=== PATIENT | female | born 1995 | race Caucasian/White ===

== ENCOUNTER → 2017-11-11 11:34 | Outpatient (CLI) | payer OTHER, MEDICAID, SELFPAY ==
[2017-11-11 12:12] LABS: Add Manual Diff / Slide Review NO; Basophils Percent Auto 0.2 % (0-2); Eosinophils Percent Auto 1.4 % (2-4); Hematocrit 40.4 % (36-46); Hemoglobin 13.7 g/dL (12.0-16.0); Lymphocytes Percent Auto 20.8 % (25-40); Mean Corpuscular HGB Conc 33.8 % (30-36); Mean Corpuscular Hemoglobin 29.3 PG (26-34); Mean Corpuscular Volume 86.6 fL (80-100); Neutrophils Absolute Auto 7200 /uL (3000-5900); Neutrophils Percent Auto 72.6 % (50-75); Platelet Count 187 X10^3/uL (150-400); Red Blood Cell Count 4.67 X10^6/uL (4.0-5.2); Red Cell Distribution Width 13.4 % (11.6-14.8); White Blood Cell Count 9.9 X10^3/uL (4.5-11.0)
[2017-11-11 12:28] LABS: Hemoglobin A1C% w Est Avg Glu 5.1 % (4.0-6.0)
[2017-11-11 12:52] LABS: Glucose 78 mg/dL (70-100)
[2017-11-11 13:54] LABS: Appearance Urine UA CLOUDY; Bilirubin Urine UA NEGATIVE (NEGATIVE); Color Urine UA YELLOW; Glucose Urine UA NEGATIVE (Normal); Ketones Urine UA NEGATIVE (NEGATIVE); Leukocyte Esterase Urine UA NEGATIVE (NEGATIVE); Nitrite Urine UA POSITIVE (Negative); Occult Blood Urine UA TRACE-LYSED (Negative); Protein Urine UA NEGATIVE (Negative); Specific Gravity Urine UA 1.025 (1.000-1.035); Urobilinogen Urine UA 0.2 E.U./dL (0.2); pH Urine UA 5.5 (4.5-8.0)
[2017-11-11 14:10] LABS: RBC Urine 0-1/HPF (0-5/HPF)
[2017-11-11 14:11] LABS: Bacteria Urine Many (>30); Squamous Epithelial Cell Urine 0-1 /HPF; WBC Urine 5-10/HPF (0-5/HPF)
[2017-11-11 15:34] LABS: Hepatitis B Surface Antigen NEGATIVE s/c (NEGATIVE); Rubella Antibody IgG 10.2 IU/mL (>15)
[2017-11-11 15:52] LABS: HIV 1 and 2 Antibody NEGATIVE (NEGATIVE); Hep C Virus Ab w/Reflex Quant NEGATIVE s/c (NEGATIVE)
[2017-11-12 13:51] LABS: HSV 2 IGG AB < 0.90 index (< 0.90)
[2017-11-18 09:26] LABS: Rapid Plasma Reagin NON-REACTIVE
== END ==
DX: Z36.9 Encounter for antenatal screening, unspecified (principal); Z3A.12 12 weeks gestation of pregnancy
CPT/HCPCS: 36415; 80055; 81003; 81015; 82947; 83036; 86695; 86696; 86703; 86787; 86803; 86850; 86900; 86901; 87077; 87086; 87186

== ENCOUNTER → 2018-02-26 09:10 | Outpatient (CLI) | payer OTHER, MEDICAID, SELFPAY ==
[2018-02-26 11:02] LABS: Hematocrit 39.3 % (36-46); Hemoglobin 13.1 g/dL (12.0-16.0)
[2018-02-26 11:17] LABS: GTT (PREG) 1 Hour PP 50gm Dose 82 mg/dL (76-139)
== END ==
PROVIDERS: PCP Family Medicine
DX: Z34.02 Encounter for supervision of normal first pregnancy, second trimester (principal)
CPT/HCPCS: 36415; 82950; 85014; 85018

== ENCOUNTER → 2018-04-28 13:39 | Outpatient (CLI) | payer OTHER, MEDICAID, SELFPAY | PROVIDERS: PCP Family Medicine | DX: Z13.9 Encounter for screening, unspecified (principal) ==

== ENCOUNTER → 2018-05-07 11:42 | Outpatient (CLI) | payer OTHER, MEDICAID, SELFPAY ==
[2018-05-08 15:42] LABS: Strep Grp B PCR POS for Grp B Strep
== END ==
PROVIDERS: PCP Family Medicine
DX: Z34.03 Encounter for supervision of normal first pregnancy, third trimester (principal)
CPT/HCPCS: 87653

== ENCOUNTER 2018-05-20 12:20 | Outpatient (CLI) | payer OTHER, MEDICAID, SELFPAY ==
--- NOTE | 2018-05-20 13:50 | PM.OBTRLD ---
Visit Information Visit Information Date of evaluation: 05/20/18 Primary OB Provider: Cralos Torres On-call OB Provider: Lolly Nicholson Reason for Evaluation: Yes rule out labor Vital Signs Vital Signs: Blood pressure 122/73, pulse of 94, temperature is 36.3? PFSH Medical History Rash (Chronic) Allergic rhinitis (Chronic) Anxiety (Chronic) Asthma (Chronic) Chronic back pain (Chronic) Depression (Chronic) Eczema (Chronic) Frequent UTI (Chronic) Heavy menstrual period (Chronic) History of recurrent ear infection (Chronic) Irregular menstrual cycle (Chronic) Migraines (Chronic) Painful menstrual periods (Chronic) Acne (Resolved) Chickenpox (Resolved) Foot pain (Resolved) Plantar fasciitis (Resolved) Surgical History S/P appendectomy (Chronic ~1997) S/P tonsillectomy (Chronic ~2012) History of surgery on arm (Resolved ~2009) Social History marital status: unmarried,single Smoking Status: Former smoker alcohol intake: never substance use type: marijuana Evaluation Evaluation Baseline heart rate: 120 Variability: Moderate (11-25) monitor accelerations: Present monitor decelerations: Absent Contraction Frequency (minutes): 5 Uterine Contraction Intensity: Mild Category of Tracing: I Cervical dilation (cm): 1 Cervical effacement (%): 80 station: -1 Diagnosis, Plan/Disposition Final Diagnosis (1) 39 weeks gestation of : Current Visit: Yes Status: Acute (2) Premature uterine contractions in third trimester, antepartum: Current Visit: Yes Status: Acute Plan/Disposition Plan: Patient came in for rule out labor. She does not appear to be in labor she was sent home to follow up on a normal OB appointment. Reactive nonstress test.
== END 2018-05-20 14:08 | disposition home or self-care (01) ==
LOC: LABOR 12:56 → OB 05-27 08:35
DX: O47.1 False labor at or after 37 completed weeks of gestation (principal); Z3A.39 39 weeks gestation of pregnancy
CPT/HCPCS: 59025; G0378; G0379

== ENCOUNTER 2018-05-21 02:40 | Inpatient (IN) | payer OTHER, MEDICAID, SELFPAY ==
[2018-05-21] MEDS: LACTATED RINGERS 1,000 ML 100 ML IV ×2 (03:05→07:40)
[2018-05-21] MEDS: PENICILLIN G POTASSIUM 5,000,000 UNIT in DEXTROSE 5% IN WATER 250 ML IV (03:05)
[2018-05-21 03:38] VITALS: BP 135/79
[2018-05-21 03:38] LABS: Add Manual Diff / Slide Review NO; Basophils Percent Auto 0.5 % (0-2); Eosinophils Percent Auto 0.2 % (2-4); Hematocrit 37.9 % (36-46); Hemoglobin 12.5 g/dL (12.0-16.0); Lymphocytes Percent Auto 12.2 % (25-40); Mean Corpuscular Hemoglobin 28.2 PG (26-34); Mean Corpuscular Volume 85.5 fL (80-100); Monocytes Percent Auto 4.7 % (3-14); Neutrophils Absolute Auto 12900 /uL (1500-7000); Neutrophils Percent Auto 82.4 % (50-75); Platelet Count 155 X10^3/uL (150-400); Red Blood Cell Count 4.43 X10^6/uL (4.0-5.2); Red Cell Distribution Width 13.8 % (11.6-14.8); White Blood Cell Count 15.6 X10^3/uL (4.5-11.0)
[2018-05-21] MEDS: PENICILLIN G POTASSIUM 3,000,000 UNIT/50 ML FROZ.PIGGY 100 UNIT IV (07:10)
--- NOTE | 2018-05-21 07:34 | PM.OBHP.1 ---
OB HPI Date/Time Date of admission: 05/21/18 Date Patient Seen: 05/21/18 Time Patient Seen: 07:35 History of Present Condition Chief complaint: EVALUATION OF LABOR : 1 Para: 0 Estimated Date of Delivery: 05/22/18 Estimated Gestational Age (weeks): 39 Narrative: Jefferson Ayala is a 22 year old female one para 0 seen and followed during this from the 12 week. The patient's blood pressures remained normotensive throughout the . Her weight went from 187-209 lb. Her urine she remained negative for glucose and protein. The patient is blood type A positive antibody screen negative. The remainder of her laboratory studies were within normal limits. Her Pap smear was ASCUS positive HPV and she was colposcope during the and found to have no significant lesions. Her 1 hr glucose was 82. The patient is group B strep positive The patient presents in labor at 3:00 a.m. on the 21 of May and was 5 cm dilated. Re-examination at 7:00 a.m. showed her to be 7 cm dilated and membranes were ruptured at that juncture and fluid was clear. The patient was receiving her 2nd dose of antibiotics at that time. Indications Other reason(s) for admission: Active labor History of Present care: good care Preadmission Labs Blood type: A (+) positive -: Antibody screen: negative, GBS status: positive, HBsAG: negative, HIV: negative, HSV 1: negative, HSV 2: negative and RPR/VDLR: negative -: Chlamydia screen: not detected and Gonorrhea screen: not detected -: Rubella: immune HCT: 40 HCAB: negative PAP: Abnormal Sequential screen: Normal Evaluation Evaluation Laboratory results: Laboratory Tests 05/21/18 05/21/18 03:05 03:05 WBC 15.6 H RBC 4.43 Hgb 12.5 Hct 37.9 MCV 85.5 MCH 28.2 MCHC 33.0 RDW 13.8 Plt Count 155 Neut % (Auto) 82.4 H Lymph % (Auto) 12.2 L Johnson % (Auto) 4.7 Eos % (Auto) 0.2 L Baso % (Auto) 0.5 Neut # (Auto) 27174 H Blood Type A Positive Antibody Screen Negative PFSH Medical History Rash (Chronic) Allergic rhinitis (Chronic) Anxiety (Chronic) Asthma (Chronic) Chronic back pain (Chronic) Depression (Chronic) Eczema (Chronic) Frequent UTI (Chronic) Heavy menstrual period (Chronic) History of recurrent ear infection (Chronic) Irregular menstrual cycle (Chronic) Migraines (Chronic) Painful menstrual periods (Chronic) Acne (Resolved) Chickenpox (Resolved) Foot pain (Resolved) Plantar fasciitis (Resolved) Surgical History S/P appendectomy (Chronic ~1997) S/P tonsillectomy (Chronic ~2012) History of surgery on arm (Resolved ~2009) Social History marital status: unmarried,single Smoking Status: Former smoker alcohol intake: never substance use type: marijuana Meds Home Medications Medication Instructions Recorded Confirmed Type IBUPROFEN (Motrin / Advil) 0 PO PRN #0 11/07/07 11/13/17 History acetaminophen 325 mg PO PRN #0 11/07/07 11/13/17 History 1 tab PO DAILY 11/11/17 11/13/17 History vitamin,calcium,japkardt-gzba-oifcg acid tablet Allergies Allergy/AdvReac Type Severity Reaction Status Date / Time No Known Drug Allergies Allergy Verified 11/13/17 09:28 Exam Vital Signs (past 8 hours): - 05/21/18 03:38 Blood Pressure 135/79 Manual OB Exam: dilated 7, effaced fully and station 0 Uterus Location (Fundal Height): 38 Presentation: vertex Amniotic Fluid: clear Objective Labs Result Diagrams: 05/21/18 03:05 Labs: Laboratory Results - last 24 hr 05/21/18 05/21/18 03:05 03:05 WBC 15.6 H RBC 4.43 Hgb 12.5 Hct 37.9 MCV 85.5 MCH 28.2 MCHC 33.0 RDW 13.8 Plt Count 155 Neut % (Auto) 82.4 H Lymph % (Auto) 12.2 L Johnson % (Auto) 4.7 Eos % (Auto) 0.2 L Baso % (Auto) 0.5 Neut # (Auto) 79295 H Blood Type A Positive Antibody Screen Negative Assessment and Plan Plan: Plan: Term GBS positive receiving antibiotics Epidural anesthesia Artificial rupture of membranes with clear fluid
--- NOTE | 2018-05-21 07:46 | P.HPOB_ITS ---
OB HPI Date/Time Date of admission: 05/21/18 Date Patient Seen: 05/21/18 Time Patient Seen: 07:35 History of Present Condition Chief complaint: EVALUATION OF LABOR : 1 Para: 0 Estimated Date of Delivery: 05/22/18 Estimated Gestational Age (weeks): 39 Narrative: Jefferson Ayala is a 22 year old female one para 0 seen and followed during this from the 12 week. The patient's blood pressures remained normotensive throughout the . Her weight went from 187-209 lb. Her urine she remained negative for glucose and protein. The patient is blood type A positive antibody screen negative. The remainder of her laboratory studies were within normal limits. Her Pap smear was ASCUS positive HPV and she was colposcope during the and found to have no significant lesions. Her 1 hr glucose was 82. The patient is group B strep positive The patient presents in labor at 3:00 a.m. on the 21 of May and was 5 cm dilated. Re-examination at 7:00 a.m. showed her to be 7 cm dilated and membranes were ruptured at that juncture and fluid was clear. The patient was receiving her 2nd dose of antibiotics at that time. Indications Other reason(s) for admission: Active labor History of Present care: good care Preadmission Labs Blood type: A (+) positive -: Antibody screen: negative, GBS status: positive, HBsAG: negative, HIV: negative, HSV 1: negative, HSV 2: negative and RPR/VDLR: negative -: Chlamydia screen: not detected and Gonorrhea screen: not detected -: Rubella: immune HCT: 40 HCAB: negative PAP: Abnormal Sequential screen: Normal Evaluation Evaluation Laboratory results: Laboratory Tests 05/21/18 05/21/18 03:05 03:05 WBC 15.6 H RBC 4.43 Hgb 12.5 Hct 37.9 MCV 85.5 MCH 28.2 MCHC 33.0 RDW 13.8 Plt Count 155 Neut % (Auto) 82.4 H Lymph % (Auto) 12.2 L Hood % (Auto) 4.7 Eos % (Auto) 0.2 L Baso % (Auto) 0.5 Neut # (Auto) 32425 H Blood Type A Positive Antibody Screen Negative PFSH Medical History Rash (Chronic) Allergic rhinitis (Chronic) Anxiety (Chronic) Asthma (Chronic) Chronic back pain (Chronic) Depression (Chronic) Eczema (Chronic) Frequent UTI (Chronic) Heavy menstrual period (Chronic) History of recurrent ear infection (Chronic) Irregular menstrual cycle (Chronic) Migraines (Chronic) Painful menstrual periods (Chronic) Acne (Resolved) Chickenpox (Resolved) Foot pain (Resolved) Plantar fasciitis (Resolved) Surgical History S/P appendectomy (Chronic ~1997) S/P tonsillectomy (Chronic ~2012) History of surgery on arm (Resolved ~2009) Social History marital status: unmarried,single Smoking Status: Former smoker alcohol intake: never substance use type: marijuana Meds Home Medications Medication Instructions Recorded Confirmed Type IBUPROFEN (Motrin / Advil) 0 PO PRN #0 11/07/07 11/13/17 History acetaminophen 325 mg PO PRN #0 11/07/07 11/13/17 History 1 tab PO DAILY 11/11/17 11/13/17 History vitamin,calcium,jizcdwgm-lfic-hpnnh acid tablet Allergies Allergy/AdvReac Type Severity Reaction Status Date / Time No Known Drug Allergies Allergy Verified 11/13/17 09:28 Exam Vital Signs (past 8 hours): - 05/21/18 03:38 Blood Pressure 135/79 Manual OB Exam: dilated 7, effaced fully and station 0 Uterus Location (Fundal Height): 38 Presentation: vertex Amniotic Fluid: clear Objective Labs Result Diagrams: 05/21/18 03:05 Labs: Laboratory Results - last 24 hr 05/21/18 05/21/18 03:05 03:05 WBC 15.6 H RBC 4.43 Hgb 12.5 Hct 37.9 MCV 85.5 MCH 28.2 MCHC 33.0 RDW 13.8 Plt Count 155 Neut % (Auto) 82.4 H Lymph % (Auto) 12.2 L Hood % (Auto) 4.7 Eos % (Auto) 0.2 L Baso % (Auto) 0.5 Neut # (Auto) 05630 H Blood Type A Positive Antibody Screen Negative Assessment and Plan Plan: Plan: Term GBS positive receiving antibiotics Epidural anesthesia Artificial rupture of membranes with clear fluid
[2018-05-21] MEDS: OXYTOCIN 10 UNIT/ML VIAL IM (09:10)
--- NOTE | 2018-05-21 09:24 | PM.OBPRVD ---
Delivery date: 05/21/18 Intrapartal events: None Induction method: none Delivery monitor: external FHT Route of delivery: Laceration description: Perineal - 1st Degree Delivery repair: chromic Estimated blood loss (mL): 150 Anesthesia type: Epidural Complications: None Narrative: The patient is a 22-year-old single white female one para 0 who presented in active labor at term. Patient was approximately 5 cm dilated on arrival. An epidural was placed. Patient made rapid progress to 7 cm were membranes were ruptured. Patient then made rapid progress to complete pushed and delivered a live-born female infant with scores of nine at 1 min and nine at 5 min in good condition. There were no vaginal or cervical tears. There was a first-degree perineal tear repaired with two 0 chromic suture. The placenta delivered spontaneously. Cord had three vessels. The estimated blood loss was 150 cc. Plan for aftercare: Routine aftercare
[2018-05-21] MEDS: IBUPROFEN 600 MG TABLET PO ×2 (12:45→18:48)
[2018-05-22] MEDS: IBUPROFEN 600 MG TABLET PO ×3 (01:15→13:26)
[2018-05-22 06:50] LABS: Hematocrit 36.9 % (36-46); Hemoglobin 12.6 g/dL (12.0-16.0)
--- NOTE | 2018-05-22 08:22 | PM.OBDS.1 ---
Discharge Providers Date of admission: 05/21/18 02:40 Primary care physician: John Piper MD Consults: 05/21/18 03:10 Consult to Anesthesiology Urgent Comment: Consulting Provider: Srinivasan Cardoso Reason for consultation: pain management for labor Has provider been notified: Yes 05/21/18 12:43 Consult to Radiation Protection Technician Routine Comment: Discharge provider: Carlos Torres MD Discharge Date: 05/22/18 Summary Date Patient Seen: 05/22/18 Time Patient Seen: 08:23 Hospital Course: The patient is a 22-year-old one now para one who presented in active labor. An epidural was placed the patient made rapid progress to complete. Patient delivered spontaneously a live born female with scores of nine and nine. She sustained a small first-degree perineal tear which was repaired with two 0 chromic suture. Placenta delivered spontaneously. Cord had three vessels. The estimated blood loss was 150 cc. Post delivery the patient did well. She remained afebrile stable vital signs and was progressively alimented and ambulated. She was discharged home for follow-up in four weeks. Peripartum Data Delivery Method: Natural Vaginal Laceration description: Perineal - 1st Degree Procedures: Spontaneous vaginal delivery complications: none Status at Discharge Cognitive/behavioral status at discharge: Normal Functional status at discharge: independent ambulation Overall status at discharge: patient is back to baseline Time Spent with Patient Total time spent providing and/or coordinating discharge services: Less than 30 minutes Objective Labs Result Diagrams: 05/22/18 06:18 Labs: Laboratory Results - last 24 hr 05/22/18 06:18 Hgb 12.6 Hct 36.9 Discharge Plan Discharge Plan Patient Disposition: Home Discharge Med Rec/Prescriptions Prescriptions: New benzocaine-menthol [Dermoplast (with menthol)] 20-0.5 % Aerosol 1 spray Topical Q1HR PRN (Reason: perineal pain) Qty: 1 RF: 0 ibuprofen 600 mg Tablet 600 mg PO Q6HR PRN (Reason: Pain, Mild (1-3)) Qty: 1 RF: 0 docusate sodium 250 mg Capsule 250 mg PO DAILY Qty: 20 RF: 0 lanolin [Iqk-B-Xcposz] Cream 1 applic Topical PRN PRN (Reason: Tenderness) Qty: 1 RF: 0 ferrous gluconate 324 mg (38 mg iron) Tablet 324 mg PO DAILY Qty: 90 RF: 0 oxycodone-acetaminophen 5-325 mg Tablet 1 tab PO Q4HR Qty: 20 RF: 0 vit,gteh18-gxjf-mgunn [Prenatabs Rx] 29 mg iron- 1 mg Tablet 1 tab PO DAILY Qty: 90 RF: 0 Discontinued acetaminophen 325 MG tablet 325 mg PO PRN Qty: 0 RF: 0 IBUPROFEN (Motrin / Advil) PO PRN Qty: 0 RF: 0 prenat.vits,brock,dyk-avqv-hanam [ Vitamin] tablet 1 tab PO DAILY RF: 0 Provider Discharge Instructions Diet: Diet as Tolerated Activity: Up ad avinash Skin/Wound/Dressing Care Report to your healthcare provider any signs of infection, such as:: chills, fever, increased pain, unusual drainage and unusual redness Discharge Data Primary Care Provider: John Piper Attending Provider: Lolly Nicholson Admit Date/Time: 05/21/18 02:40
--- NOTE | 2018-05-22 08:25 | P.DS_ITS ---
Discharge Providers Date of admission: 05/21/18 02:40 Primary care physician: John Piper MD Consults: 05/21/18 03:10 Consult to Anesthesiology Urgent Comment: Consulting Provider: Srinivasan Cardoso Reason for consultation: pain management for labor Has provider been notified: Yes 05/21/18 12:43 Consult to Labor Delivery Specialist Routine Comment: Discharge provider: Carlos Torres MD Discharge Date: 05/22/18 Summary Date Patient Seen: 05/22/18 Time Patient Seen: 08:23 Hospital Course: The patient is a 22-year-old one now para one who presented in active labor. An epidural was placed the patient made rapid progress to complete. Patient delivered spontaneously a live born female with scores of nine and nine. She sustained a small first-degree perineal tear which was repaired with two 0 chromic suture. Placenta delivered spontaneously. Cord had three vessels. The estimated blood loss was 150 cc. Post delivery the patient did well. She remained afebrile stable vital signs and was progressively alimented and ambulated. She was discharged home for follow-up in four weeks. Peripartum Data Delivery Method: Natural Vaginal Laceration description: Perineal - 1st Degree Procedures: Spontaneous vaginal delivery complications: none Status at Discharge Cognitive/behavioral status at discharge: Normal Functional status at discharge: independent ambulation Overall status at discharge: patient is back to baseline Time Spent with Patient Total time spent providing and/or coordinating discharge services: Less than 30 minutes Objective Labs Result Diagrams: 05/22/18 06:18 Labs: Laboratory Results - last 24 hr 05/22/18 06:18 Hgb 12.6 Hct 36.9 Discharge Plan Discharge Plan Patient Disposition: Home Discharge Med Rec/Prescriptions Prescriptions: New benzocaine-menthol [Dermoplast (with menthol)] 20-0.5 % Aerosol 1 spray Topical Q1HR PRN (Reason: perineal pain) Qty: 1 RF: 0 ibuprofen 600 mg Tablet 600 mg PO Q6HR PRN (Reason: Pain, Mild (1-3)) Qty: 1 RF: 0 docusate sodium 250 mg Capsule 250 mg PO DAILY Qty: 20 RF: 0 lanolin [Jmg-X-Blmrhu] Cream 1 applic Topical PRN PRN (Reason: Tenderness) Qty: 1 RF: 0 ferrous gluconate 324 mg (38 mg iron) Tablet 324 mg PO DAILY Qty: 90 RF: 0 oxycodone-acetaminophen 5-325 mg Tablet 1 tab PO Q4HR Qty: 20 RF: 0 vit,ujum29-udni-cqxqo [Prenatabs Rx] 29 mg iron- 1 mg Tablet 1 tab PO DAILY Qty: 90 RF: 0 Discontinued acetaminophen 325 MG tablet 325 mg PO PRN Qty: 0 RF: 0 IBUPROFEN (Motrin / Advil) PO PRN Qty: 0 RF: 0 prenat.vits,brock,njk-aart-alsgu [ Vitamin] tablet 1 tab PO DAILY RF: 0 Provider Discharge Instructions Diet: Diet as Tolerated Activity: Up ad avinash Skin/Wound/Dressing Care Report to your healthcare provider any signs of infection, such as:: chills, fever, increased pain, unusual drainage and unusual redness Discharge Data Primary Care Provider: John Piper Attending Provider: Lolly Nicholson Admit Date/Time: 05/21/18 02:40
[2018-05-22 10:49] VITALS: BP 135/79
== END 2018-05-22 13:32 | disposition home or self-care (01) | DRG 560 ==
PROVIDERS: Admitting Provider Specialist; PCP Family Medicine; Visit Provider Specialist
DX: O99.824 Streptococcus B carrier state complicating childbirth (principal); Z3A.39 39 weeks gestation of pregnancy; Z37.0 Single live birth; O70.0 First degree perineal laceration during delivery
CPT/HCPCS: 01967; 59025; 59050; 59409; 85014; 85018; 85025; 86850; 86900; 86901; G0378; G0379; J2540; J2590; J3010